=== PATIENT | female | born 1960 | race African-American/Black ===

== ENCOUNTER 2021-11-02 15:49 | Emergency (ER) | payer SELFPAY ==
[~2021-11-02] VITALS: Ht 167.6 cm; Wt 74.8 kg
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
[2021-11-02] MEDS ORDERED: ACETAMINOPHEN 650 MG/20.3 ML UDC ONE (17:12)
[2021-11-02] MEDS ORDERED: KETOROLAC TROMETHAMINE INJ 60 MG/2 ML VIAL IM ONE ×2 (17:12→17:30)
[2021-11-02] MEDS ORDERED: ACETAMINOPHEN 650 MG/20.3 ML UDC PO ONE (17:30)
[2021-11-02 18:52] VITALS: BP 121/80
--- NOTE | 2021-11-02 18:52 | NUR ---
Patient discharged to home in stable condition. Written and verbal after care instructions given. Patient verbalizes understanding of instruction.
== END 2021-11-02 18:53 | disposition home or self-care (01) ==
LOC: ER 15:51
DX: S39.012A Strain of muscle, fascia and tendon of lower back, initial encounter (principal); M25.561 Pain in right knee; V49.49XA Driver injured in collision with other motor vehicles in traffic accident, initial encounter; Y93.89 Activity, other specified; Y92.413 State road as the place of occurrence of the external cause; Y99.8 Other external cause status
CPT/HCPCS: 72190; 73564; 96372; 99284; J1885

== ENCOUNTER 2022-08-14 01:13 | Emergency (ER) | payer SELFPAY ==
[~2022-08-14] VITALS: Ht 167.6 cm; Wt 74.8 kg
[2022-08-14 02:00] VITALS: BP 146/68
[2022-08-14] MEDS ORDERED: ACETAMINOPHEN ES 500 MG TABLET ONE (02:19)
[2022-08-14] MEDS ORDERED: ACETAMINOPHEN ES 500 MG TABLET PO ONE (02:30)
--- NOTE | 2022-08-14 04:49 | NUR ---
Patient discharged to home in stable condition. Written and verbal after care instructions given. Patient verbalizes understanding of instruction.
== END 2022-08-14 05:01 | disposition home or self-care (01) ==
LOC: ER 01:15
DX: S30.0XXA Contusion of lower back and pelvis, initial encounter (principal); S00.81XA Abrasion of other part of head, initial encounter; M25.552 Pain in left hip; M25.551 Pain in right hip; M25.561 Pain in right knee; M25.562 Pain in left knee; Y08.89XA Assault by other specified means, initial encounter; Y93.89 Activity, other specified; Y92.89 Other specified places as the place of occurrence of the external cause; Y99.8 Other external cause status
CPT/HCPCS: 72170-TC; 73564-TC

== ENCOUNTER 2024-06-07 17:20 | Emergency (ER) | payer MEDICAID ==
[~2024-06-07] VITALS: Ht 167.6 cm; Wt 74.8 kg
[2024-06-07] MEDS ORDERED: IBUPROFEN 600 MG TABLET ONE (18:28)
[2024-06-07] MEDS ORDERED: ACETAMINOPHEN ES 500 MG TABLET ONE (18:28)
[2024-06-07] MEDS: IBUPROFEN 600 MG TABLET PO ONE (18:31)
[2024-06-07] MEDS: ACETAMINOPHEN ES 500 MG TABLET PO ONE (18:31)
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
--- NOTE | 2024-06-07 19:21 | NUR ---
Patient discharged to home in stable condition. Written and verbal after care instructions given. Patient verbalizes understanding of instruction.
[2024-06-07 19:24] VITALS: BP 135/85; TEMP 98; O2SAT 99
== END 2024-06-07 19:22 | disposition home or self-care (01) ==
LOC: ER 17:25
DX: S29.012A Strain of muscle and tendon of back wall of thorax, initial encounter (principal); S20.219A Contusion of unspecified front wall of thorax, initial encounter; M54.2 Cervicalgia; V49.49XA Driver injured in collision with other motor vehicles in traffic accident, initial encounter; Y93.89 Activity, other specified; Y92.488 Other paved roadways as the place of occurrence of the external cause; Y99.8 Other external cause status
CPT/HCPCS: 71045-TC; 72125-TC; 72128-TC; 72131-TC